=== PATIENT | male | born 1965 | race Caucasian/White ===

== ENCOUNTER → 2020-06-12 15:10 | Outpatient (CLI) | payer OTHER, SELFPAY ==
--- NOTE | 2020-06-12 15:17 | XR_ITS ---
PROCEDURE: XR LUMBAR SPINE MIN 4V CLINICAL INDICATION: LUMBAR DD DISEASE, CHRONIC BACK PAIN GREATER THAN 3 MONTHS COMPARISON: No exams were available for comparison FINDINGS: There is normal alignment. Small endplate osteophytes are present. There is very slight decrease in height anteriorly of L2 and L4 age indeterminate. Degenerative disc disease is present at L3-L4 L4-5 and L5-S1. Numerous small calcifications overlie the right upper quadrant on the right posterior oblique view and could be due to multiple tiny gallstones. Multiple splenic granulomas are present. IMPRESSION: Minimal wedging L2 and L4 age indeterminate with mild degenerative disc disease. No obvious retropulsed fragments Possible cholelithiasis Dictated by: Warren Silva MD 06/12/2020 15:32 Warren Silva MD in [place] 06/12/2020 15:32
== END ==
PROVIDERS: PCP Family Medicine; Visit Provider Family Medicine
DX: M51.36 Other intervertebral disc degeneration, lumbar region (principal); M48.062 Spinal stenosis, lumbar region with neurogenic claudication; M54.9 Dorsalgia, unspecified
CPT/HCPCS: 72110

== ENCOUNTER → 2021-07-20 07:47 | Outpatient (CLI) | payer OTHER, SELFPAY ==
--- NOTE | 2021-07-20 07:52 | US_ITS ---
FINAL REPORT CLINICAL HISTORY: ELEVATD LIVER ENZYMES; ruq pain with vomiting FINDINGS: Ultrasound images of the right upper quadrant were obtained. The liver parenchyma is normal in echogenicity. The gallbladder is contracted. There are multiple gallstones. The common duct is dilated up to 8 mm. Limited images of the right kidney are unremarkable. IMPRESSION: Multiple gallstones in a contracted gallbladder with dilatation of the common duct. Cannot exclude a distal choledocholithiasis. Reviewed, Interpreted and Dictated by Radames Palmer MD Transcribed by Erich Kenyon Authenticated by Radames Palmer MD on 07/20/2021 11:17:11 AM [facility]
== END ==
PROVIDERS: PCP Nurse Practitioner Family; Visit Provider Nurse Practitioner Family
DX: R74.8 Abnormal levels of other serum enzymes (principal)
CPT/HCPCS: 76705

== ENCOUNTER → 2022-09-13 08:05 | Outpatient (CLI) | payer OTHER, SELFPAY ==
--- NOTE | 2022-09-13 14:14 | XR_ITS ---
FINAL REPORT CLINICAL HISTORY: Lt hip pain radiating distally x 1 month since falling out of bed. FINDINGS: LEFT HIP: Two views of the left hip demonstrate no acute fracture or dislocation. The joint spaces appear normal. The visualized bony structures are well aligned. No soft tissue abnormality is seen. IMPRESSION: No acute bony abnormality. Reviewed, Interpreted and Dictated by Esteban Ortiz MD Transcribed by Danielle Swanson Authenticated and . [facility]
--- NOTE | 2022-09-13 14:15 | XR_ITS ---
FINAL REPORT TECHNIQUE: 5 views CLINICAL HISTORY: LT LBP x 1 month since falling out of bed. Pain radiates down Lt leg. FINDINGS: There is no fracture present. There is no malalignment. There are no significant degenerative changes. IMPRESSION: No acute process. Reviewed, Interpreted and Dictated by Esteban Ortiz MD Transcribed by Danielle Swanson Authenticated and [facility]
== END ==
PROVIDERS: PCP Internal Medicine; Visit Provider Internal Medicine
DX: M54.9 Dorsalgia, unspecified (principal); M54.50 Low back pain, unspecified; M25.552 Pain in left hip; M79.605 Pain in left leg
CPT/HCPCS: 72110; 73502

== ENCOUNTER 2022-10-23 09:49 | Emergency (ER) | payer BC, SELFPAY ==
[2022-10-23] VITALS (7 sets, daily range): BP systolic 110–155; BP diastolic 65–85; PULSE 88–108; RESP 16; TEMP 36.6–36.9; O2SAT 95–100; BMI 17.0
[2022-10-23 10:00] LABS: POC Glucose,Bedside 274 (70-110)
--- NOTE | 2022-10-23 10:03 | ECG_ITS ---
APPROVED REPORT Exam: Resting ECG HR:96 bpm ECG Measurements Heart Rate 96 AXES WY 139 P 78 QRSd 92 QRS 72 QT 358 T 79 QTc 412 Conclusion SINUS RHYTHM NORMAL ECG UNCONFIRMED REPORT Electronically signed by : Olaf Madden MD 10/23/2022 21:01:31
--- NOTE | 2022-10-23 10:22 | HMH.EDGENADL ---
Discharge Plan Disposition Patient Disposition: Home, Self-Care Referrals Follow up/Referrals: Adrianna Baron MD [Primary Care Provider] - See instructions Clinical Impressions Clinical Impression: Orthostatic dizziness, Acute dehydration, Pre-syncope, Hyperglycemia Discharge ED Provider: Justine Duong General Adult HPI General Chief complaint: Dizziness Stated complaint: High sugar Time Seen by Provider: 10/23/22 10:14 Mode of Arrival: Ambulatory Source of Information: Patient Limitations: No Limitations Description of Symptoms (Recalled from ER Triage Doc. by RN): Pt presents via POV after an episode of feeling lightheaded/dizzy while at work this morning. Hx of DMII, HTN, HLD. Denies further complaints. FS 174 on arrival. States he ate 1/2 bag of chips and drank (2) cups of coffee. History of Present Illness HPI narrative: Patient is a 57-year-old male presenting with lightheadedness and near syncope. He states that over the last several weeks he has been having orthostatic symptoms with lightheadedness with changes in position specifically with sitting to standing. 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 He did not lose consciousness. He had no chest pain or shortness of breath no abdominal pain or any other painful symptoms. He is now back to normal. Did state that his blood sugar recently was over 300. States that his blood sugar normally runs between 200-400 s this is not atypical for him. He knows that he has poor p.o. intake of fluids and has been told that this is the cause of the symptoms in the past by his primary care doctor. He denies other symptoms today. Related Data Allergies Allergy/AdvReac Type Severity Reaction Status Date / Time No Known Allergies Allergy Verified 10/23/22 10:14 [facility] Disclaimer: The information contained in this section may have been updated after the patient was seen, as this information can be updated by other users. Social History Smoking Status: Current every day smoker tobacco type: cigarettes packs per day: 1 alcohol intake: never current occupational status: employed Travel in the last 8 weeks: None ROS Obtained: Yes All systems reviewed & no additional complaints except as documented Physical Exam General General appearance: alert Respiratory Respiratory exam: Present normal lung sounds bilaterally; Absent wheezes Cardiovascular Cardiovascular exam: Present regular rate; Absent tachycardia Neurological Exam Neurological exam: Present alert and oriented X3 Medical Decision Making He Inquiry Pt receiving controlled substance: No Vital Signs: 10/23/22 10:03 10/23/22 09:53 10/23/22 10:00 Temperature 98.4 F Temperature Source Oral Pulse Rate 98 H 98 H Pulse Rate [Right] 108 H Respiratory Rate 16 Blood Pressure 110/70 115/65 Blood Pressure [Right Arm] 110/70 Blood Pressure Mean 85 82 Blood Pressure Mean [Right Arm] 83 02 Sat by Pulse Oximetry 97 100 100 Oxygen Delivery Method Room Air 10/23/22 10:30 Temperature Temperature Source Pulse Rate 97 H Pulse Rate [Right] Respiratory Rate Blood Pressure 120/76 Blood Pressure [Right Arm] Blood Pressure Mean 90 Blood Pressure Mean [Right Arm] 02 Sat by Pulse Oximetry 100 Oxygen Delivery Method Lab Data Lab results reviewed: Yes I reviewed the patient's lab results. Lab Results 10/23/22 09:53: POC Glucose 274 H 10/23/22 10:00: WBC 9.0, RBC 5.61, Hgb 14.9, Hct 44.5, MCV 79.3 L, MCH 26.6 L, MCHC 33.6, RDW 14.1, Plt Count 400, MPV 7.1 L, Neut % (Auto) 66.1, Lymph % (Auto) 26.6, Clayton % (Auto) 5.4, Eos % (Auto) 1.1, Baso % (Auto) 0.8, Neut # (Auto) 5.9, Lymph # (Auto) 2.4, Clayton # (Auto) 0.5, Eos # (Auto) 0.1, Baso # (Auto) 0.1, Sodium 137, Potassium 4.4, Chloride 95 L, Carbon Dioxide 29, Anion Gap 17.4 H, BUN 13, Creat
[2022-10-23 10:31] LABS: Basophils # 0.1 K/mm3 (0-0.2); Basophils % 0.8 % (0.1-2.0); Eosinophils # 0.1 K/mm3 (0.0-0.4); Eosinophils % 1.1 % (0.1-12.0); Hematocrit 44.5 % (42.0-52.0); Hemoglobin 14.9 g/dL (14.1-18.0); Lymphocytes # 2.4 K/mm3 (0.7-4.5); Lymphocytes % 26.6 % (10-50); Mean Corpuscular HGB Conc 33.6 g/dL (31.8-35.4); Mean Corpuscular Hemoglobin 26.6 pg (27.0-31.2); Mean Corpuscular Volume 79.3 fl (80-94); Mean Platelet Volume 7.1 fl (7.4-10.4); Monocytes # 0.5 K/mm3 (0.1-1.0); Monocytes % 5.4 % (1.7-9.3); Neutrophils # 5.9 K/mm3 (1.8-7.8); Neutrophils % 66.1 % (37.0-80.0); Platelet Count 400 K/mm3 (142-424); Red Blood Count 5.61 M/mm3 (4.60-6.20); Red Cell Distribution Width 14.1 % (11.5-17.5)
[2022-10-23 10:33] LABS: Anion Gap 17.4 mEq/L (5-15); Blood Urea Nitrogen 13 mg/dl (9-20); Carbon Dioxide 29 mmol/L (22.0-30.0); Chloride 95 mmol/L (98-107); Creatinine Clearance Estimated 80 mL/min (50-200); Estimated Glomerular Filt Rate 100 ml/min (>60); GFR (African American) 121 ML/MIN (>60); Glucose 301 mg/dl (74-100); Potassium 4.4 mmoL/L (3.5-5.1); Sodium 137 mmol/L (136-145)
--- NOTE | 2022-10-23 10:37 | PC.NURSE ---
Pt updated on plan of care. Family at the bedside.
--- NOTE | 2022-10-23 10:40 | PC.NURSE ---
Rounded on patient; Spouse at BS. no other needs at this time. Call burnett within reach
[2022-10-23 10:45] LABS: Troponin I < 0.01 ng/ml (0.00-0.034)
--- NOTE | 2022-10-23 11:17 | PC.NURSE ---
Additional warm blankets provided.
--- NOTE | 2022-10-23 11:25 | PC.NURSE ---
Water provided; eddie by . Pt ambulated to restroom.
--- NOTE | 2022-10-23 11:26 | PC.NURSE ---
MD to bedside.
== END 2022-10-23 11:40 | disposition home or self-care (01) ==
PROVIDERS: Emergency Provider Student in an Organized Health Care Education/Training Program; PCP Family Medicine
DX: E11.65 Type 2 diabetes mellitus with hyperglycemia (principal); E86.0 Dehydration; R55 Syncope and collapse; I10 Essential (primary) hypertension; E78.5 Hyperlipidemia, unspecified; F17.210 Nicotine dependence, cigarettes, uncomplicated
CPT/HCPCS: 80048; 82962; 84484; 85025; 93005; 96360; 99285

== ENCOUNTER 2023-03-20 15:56 | Emergency (ER) | payer OTHER, BC, SELFPAY ==
[2023-03-20 15:58] VITALS: BP 150/85; PULSE 107; RESP 19; TEMP 36.9; O2SAT 96; BMI 17.8
--- NOTE | 2023-03-20 16:17 | HMH.EDGENADL ---
Discharge Plan Disposition Patient Disposition: Home, Self-Care Referrals Follow up/Referrals: Adrianna Baron MD [Primary Care Provider] - See instructions Jose Caro DPM [Physician] - See instructions Activity Restrictions/Add. Instructions Additional Instructions/Restrictions: Call your family doctor to establish care for this visit to the emergency department and schedule follow-up within 48 hours to ensure improvement. If you have any worsening of your condition or any other concerning signs or symptoms, return to the emergency department or your primary care doctor for further evaluation. Take Tylenol 1000 mg every 6 hours (4 times daily) and ibuprofen 400 mg every 6 hours (4 times daily) as needed with food and water to prevent GI upset and kidney damage. Podiatry follow-up has been listed here. Call them for follow-up short and long-term. Clinical Impressions Clinical Impression: Blister of left great toe Qualifiers: Encounter type: initial encounter Qualified Code(s): S90.422A - Blister (nonthermal), left great toe, initial encounter Instructions Patient Instructions: DI for Skin Abscess Discharge ED Provider: Deion Mariscal General Adult HPI General Chief complaint: Skin/Abscess/Foreign Body Stated complaint: WC 12-12 Left big toe damaged Time Seen by Provider: 03/20/23 16:00 Mode of Arrival: Ambulatory Source of Information: Patient Limitations: No Limitations Description of Symptoms (Recalled from ER Triage Doc. by RN): pt presents to ED with c/o blister on left big toe. 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 pt reports that his steel toe boot caught his big toe within his boot and caused a blister on the big toe of left foot. pt is diabetic. History of Present Illness HPI narrative: 57-year-old male history of hypertension, hyperlipidemia, diabetes, currently smoking presenting with left great toe injury. Patient states that a couple days prior to arrival, he was at work when he got his foot caught under a machine. He was wearing steel toed boots. It bent his foot forward and hyperflexed his digits, he had pain in his left foot, but has been able to bear weight. He called his family doctor, family doctor recommended he come to the emergency department for antibiotics and concern for infection because of diabetes. Patient states that his diabetes is well-controlled and he has had no fevers or chills. No drainage from the area. Related Data Allergies Allergy/AdvReac Type Severity Reaction Status Date / Time No Known Allergies Allergy Verified 10/23/22 10:14 [facility] Disclaimer: The information contained in this section may have been updated after the patient was seen, as this information can be updated by other users. Social History Smoking Status: Current every day smoker tobacco type: cigarettes packs per day: 1 alcohol intake: never current occupational status: employed Travel in the last 8 weeks: None ROS Obtained: Yes All systems reviewed & no additional complaints except as documented Physical Exam General General appearance: alert and in no apparent distress Head Head exam: atraumatic and normocephalic Eye Eye exam: Present normal appearance, PERRL and EOMI ENT ENT exam: Present mucous membranes moist Neck Neck exam: Present normal inspection, full ROM and trachea midline Respiratory Respiratory exam: Absent respiratory distress, wheezes, stridor, accessory muscle use or prolonged expiratory phase Cardiovascular Cardiovascular exam: Present normal rhythm Abdominal Exam Abdominal exam: Present soft; Absent distention, tenderness, guarding, rebound, rigidity or normal bowel sounds Extremities Exam Extremities exam: Present other (L great toe blood blister, no drainage. ROM intact, but limited secondary to swelling); Absent edema Neurological Exam Neurological exam: Present alert, oriented X3, CN II-XII intact and normal gait; A
--- NOTE | 2023-03-20 16:18 | XR_ITS ---
PROCEDURE INFORMATION: Exam: XR Left Foot Exam date and time: 03/20/2023 4:23 PM Age: 57 years old Clinical indication: Pain; Foot and toes; Left; Additional info: Left great toe injury and decreased rom TECHNIQUE: Imaging protocol: Radiologic exam of the left foot. Views: 3 or more views. COMPARISON: No relevant prior studies available. FINDINGS: Bones/joints: No fractures, dislocations, or focal bone lesions. The interphalangeal joint of the great toe may be widened. No periarticular erosions. Soft tissues: No masses, soft tissue gas, or radiopaque foreign bodies. IMPRESSION: 1. Questionable widening of the IP joint of the left great toe may indicate joint effusion or ligament injury. No fracture or dislocation. MRI would be useful if clinically warranted. 2. No other acute findings in the left foot.
[2023-03-20 16:30] VITALS: BP 149/88; PULSE 102; O2SAT 99
[2023-03-20 17:00] VITALS: BP 163/135; PULSE 102; O2SAT 98
[2023-03-20 17:58] VITALS: BP 129/86; PULSE 101; RESP 18; TEMP 36.6; O2SAT 98
== END 2023-03-20 17:59 | disposition home or self-care (01) ==
PROVIDERS: Emergency Provider Emergency Medicine; PCP Family Medicine
DX: S90.422A Blister (nonthermal), left great toe, initial encounter (principal); E11.9 Type 2 diabetes mellitus without complications; I10 Essential (primary) hypertension; E78.5 Hyperlipidemia, unspecified; F17.210 Nicotine dependence, cigarettes, uncomplicated; W23.1XXA Caught, crushed, jammed, or pinched between stationary objects, initial encounter
CPT/HCPCS: 73630; 99283

== ENCOUNTER → 2023-03-24 12:45 | Outpatient (CLI) | payer OTHER, SELFPAY ==
[2023-03-24 13:36] LABS: Basophils # 0.1 K/mm3 (0-0.2); Basophils % 0.5 % (0.1-2.0); Eosinophils # 0.1 K/mm3 (0.0-0.4); Eosinophils % 0.6 % (0.1-12.0); Hematocrit 39.2 % (42.0-52.0); Hemoglobin 13.5 g/dL (14.1-18.0); Lymphocytes # 3.4 K/mm3 (0.7-4.5); Lymphocytes % 28.8 % (10-50); Mean Corpuscular HGB Conc 34.6 g/dL (31.8-35.4); Mean Corpuscular Hemoglobin 27.2 pg (27.0-31.2); Mean Corpuscular Volume 78.8 fl (80-94); Mean Platelet Volume 6.4 fl (7.4-10.4); Monocytes # 0.4 K/mm3 (0.1-1.0); Monocytes % 3.3 % (1.7-9.3); Neutrophils # 7.8 K/mm3 (1.8-7.8); Neutrophils % 66.8 % (37.0-80.0); Platelet Count 500 K/mm3 (142-424); Red Blood Count 4.98 M/mm3 (4.60-6.20); Red Cell Distribution Width 13.6 % (11.5-17.5); White Blood Count 11.7 K/mm3 (4.8-10.8)
[2023-03-24 13:46] LABS: Albumin Level 4.3 g/dl (3.5-5.0); Albumin/Globulin Ratio 1.7 (1.1-1.8); Blood Urea Nitrogen 10 mg/dl (9-20); Calcium 9.1 mg/dl (8.4-10.2); Estimated Glomerular Filt Rate 139 ml/min (>60); GFR (African American) 168 ML/MIN (>60); Globulin 2.6 g/dL (1.3-3.2); Glucose 355 mg/dl (74-100); Potassium 3.9 mmoL/L (3.5-5.1); Total Protein,Serum 6.9 g/dl (6.3-8.2)
[2023-03-24 13:48] LABS: Alanine Aminotransferase 20 U/L (12-78); Alkaline Phosphatase 94 U/L (38-126); Anion Gap 14.9 mEq/L (5-15); Aspartate Amino Transferase 25 U/L (17-59); Bilirubin,Total 0.6 mg/dl (0.2-1.3); Carbon Dioxide 26 mmol/L (22.0-30.0); Chloride 97 mmol/L (98-107); Sodium 134 mmol/L (136-145)
[2023-03-24 13:51] LABS: C-Reactive Protein 3.9 mg/L (0-4)
[2023-03-24 14:09] LABS: Erythrocyte Sedimentation Rate 12 mm/hr (0-20)
[2023-03-24 14:59] LABS: Hemoglobin A1C 11.3 % (4.0-6.0)
[2023-04-02 00:02] LABS: 1,25 Dihydroxy Vitamin D 42 pg/mL (.); 1,25-Dihydroxy, Vitamin D-2 21 pg/mL (.); 1,25-Dihydroxy, Vitamin D-3 21 pg/mL (.)
== END ==
PROVIDERS: PCP Family Medicine; Visit Provider Podiatrist
DX: E11.9 Type 2 diabetes mellitus without complications (principal); S90.422A Blister (nonthermal), left great toe, initial encounter; Z79.4 Long term (current) use of insulin
CPT/HCPCS: 36415; 80053; 82652; 83036; 85025; 85651; 86140

== ENCOUNTER 2025-01-11 08:39 | Day surgery (SDC) | payer BC, SELFPAY ==
--- NOTE | 2025-01-11 09:02 | EXP.GEN.HP ---
HPI HPI HPI: This is a 59-year-old gentleman who presents for colonoscopy. He reports a recent positive blood study . Presumably, he has had a recent positive Guardant Shield blood test. No melena. No bright red blood per rectum. No unexplained weight loss. [facility] Disclaimer: The information contained in this section may have been updated after the patient was seen, as this information can be updated by other users. Social History Smoking Status: Current every day smoker tobacco type: cigarettes packs per day: 1 alcohol intake: never current occupational status: employed Travel in the last 8 weeks?: None Have you lived/traveled outside [place] in past 30 days?: No Contact w/someone who lives/traveled outside US past 30 days?: No Exposure to someone with infectious disease in past 14 days?: No Do you have a fever (greater than 100.4 F or 38 C)?: No Have you tested positive for COVID-19?: No Exposed to someone with COVID-19 in past 14 days?: No Do you have a sore throat?: No Do you have a cough?: No Do you have any weakness?: No Do you have any diarrhea?: No Are you experiencing any unusual bleeding?: No Do you have any muscle aches/pain?: No Do you have any abdominal pain?: No Are you experiencing loss of taste or smell?: No Other Medical History Have you received the Flu Vaccine for this season: No Have you received the Pneumonia Vaccine: No Review of Systems Review of Systems Review of systems:: pertinent systems reviewed and negative unless documented below Meds Home Medications and Allergies Home Medications ?Medication ?Instructions ?Recorded ?Confirmed ?Type amlodipine 5 mg tablet mg PO 03/24/23 06/16/23 History doxycycline hyclate 100 mg tablet 100 mg PO BID 10 days #20 tabs 03/24/23 06/16/23 Rx ergocalciferol (vitamin D2) 1,250 PO 03/24/23 06/16/23 History mcg (50,000 unit) capsule (Vitamin D2) eszopiclone 2 mg tablet mg PO 03/24/23 06/16/23 History gentamicin 0.1 % topical cream 1 applic topical DAILY #30 grams 03/24/23 06/16/23 Rx insulin lispro protamine-lispro SQ 03/24/23 06/16/23 History 100 unit/mL (75-25) subcutaneous pen metformin 1,000 mg tablet mg PO 03/24/23 06/16/23 History niacin 500 mg tablet 500 mg PO DAILY 03/24/23 06/16/23 History omeprazole 40 mg capsule,delayed mg PO 03/24/23 06/16/23 History release tizanidine 4 mg tablet mg PO 03/24/23 06/16/23 History tramadol 50 mg tablet 50 mg PO TID PRN pain 7 days #21 03/24/23 06/16/23 Rx tabs sod picosulf 10 mg-magnes 3.5 175 ml PO DAILY 2 doses #350 mL 01/04/25 Rx gram-citric 12 gram/175 mL oral solution (Clenpiq) New Prescriptions to Start Prescriptions: Allergies Allergy/AdvReac Type Severity Reaction Status Date / Time No Known Allergies Allergy Verified 06/16/23 09:21 Exam Constitutional Constitutional: no acute distress *Routine HEENT Exam Head: Present normocephalic Eye: Present EOMI ENT: Present mucous membranes moist *Routine Neck Exam Neck: Present full ROM *Routine Respiratory Exam Respiratory: Absent respiratory distress *Routine Cardiovascular Exam Cardiovascular: Absent tachycardia *Routine Abdominal Exam Abdominal: Present soft *Routine Rectal Exam Rectal:: deferred *Routine Genitalia Exam Genitalia:: deferred *Routine Extremities Exam Extremities: Present full ROM *Routine Skin Exam Skin: Absent erythema *Routine Neurological Exam Neurological: Present alert Assessment and Plan *Assessment and plan (1) Abnormal blood test: Problem Comment: Presumably, the patient has had a recent Guardant Shield blood test Status: Acute Category: Medical Plan: Colonoscopy today I have discussed the risks and benefits including, but not limited to: Bleeding Infection Damage to surrounding tissue Inherent risks of sedation The patient agrees to proceed.
--- NOTE | 2025-01-11 09:04 | P.PCN_ITS ---
Procedure: Date: 01/11/25 Patient Date of :: 1965 Procedure Performed:: Colonoscopy with polypectomy Indications:: Screening (presumably, recent positive Guardant Shield blood test) Performing Provider:: Mohan Chavis MD Referring Provider:: . Sedation:: Monitored anesthesia care Procedure:: After informed consent was obtained the patient was taken to the endoscopy suite. Sedation ensued after the patient was transferred to the left lateral decubitus position. Pulse, blood pressure, and oxygen saturation were monitored throughout the procedure. Digital rectal exam revealed no significant abnorm ality. The colonoscope was placed in position. The entire colon was evaluated. The colonoscope was carefully removed and the patient was transferred to recovery in stable condition. Please see findings and specimens below for detail. Findings:: Bowel preparation exceedingly poor Colonoscopy not aborted secondary to recent positive Guardant Shield study Severe spasticity/lack of relaxation Complex lobulated hepatic flexure polyp Specimens:: Complex lobulated hepatic flexure polyp (hot snare) Recommendations:: Repeat colonoscopy in the very near future with extended/alternate bowel preparation. Consider gastroenterology consultation for possible chronic constipation. If gastroenterology consultation is completed is repeat colonoscopy will be deferred to their service. Complications:: Poor bowel preparation limited visualization Estimated blood obtained (mL): 1 Colonoscopy Component Colonoscopy Component Was a colonoscopy performed during today's procedure?: Yes Recommended follow up colonoscopy of at least 10 years?: No If no, follow up colonoscopy recommended in ___ years?: (See above) Reason for not recommending >/= 10 yr follow-up interval?: (See above)
[2025-01-11 09:10] VITALS: BP 167/91; PULSE 106; RESP 20; TEMP 36.2; O2SAT 99; BMI 19.9
[2025-01-11 09:23] LABS: POC Glucose,Bedside 307 gm/dL (70-110)
[2025-01-11] MEDS: LACTATED RINGERS 1000ML 1,000 ML 50 ML IV (09:56)
--- NOTE | 2025-01-11 09:58 | EXP.ANES.CKL ---
[facility] Disclaimer: The information contained in this section may have been updated after the patient was seen, as this information can be updated by other users. Medical History Diabetes mellitus, type 2 Hypertension Hyperlipidemia Allergies Surgical History Hx of surgical amputation of finger Family History Grandfather History of liver cancer Social History Smoking Status: Current every day smoker tobacco type: cigarettes packs per day: 1 alcohol intake: never substance use type: unknown current occupational status: employed Travel in the last 8 weeks?: None [facility] Anesthesia Checklist Patient Identification Patient Identification: Arm Band and Verbal (Name & ) Structural Data Admitted From: Home Planned Operative Procedure/s: colonscopy Consent for Planned Operative Procedure(s) Verified: Yes Verified Documents: Surgical Consent and History and Physical NPO Status Verified Time NPO: 00:00 Additional verifications Anesthesia Reactions: Yes Previous Colonoscopy: No Airway Assessment Mallampati Score:: Class II Dentition: Edentulous Neurological Assessment Level of Consciousness: Awake, Alert and Appropriate Hx Seizures: No Numbness or tingling in extremities: No Anesthesia Plan Anesthesia Risk discussed: Yes Anesthesia Plan: Verified ASA Class: III Anesthesia Type: MAC
[2025-01-11 11:08] VITALS: BP 98/57; PULSE 68; RESP 14; TEMP 36.6; O2SAT 100
[2025-01-11 11:18] VITALS: BP 114/65; PULSE 77; RESP 17; TEMP 36.6; O2SAT 97
[2025-01-11 11:28] VITALS: BP 119/69; PULSE 77; RESP 17; TEMP 36.6; O2SAT 99
[2025-01-11 11:38] VITALS: BP 138/55; PULSE 78; RESP 18; TEMP 36.6; O2SAT 99
== END 2025-01-11 11:45 | disposition home or self-care (01) ==
PROVIDERS: PCP Family Medicine; Visit Provider Surgery
PROC: 0DJD8ZZ Inspection of Lower Intestinal Tract, Via Natural or Artificial Opening Endoscopic (ICD-10-PCS; CPT 45385; principal; 2025-01-11 09:30)
DX: D12.3 Benign neoplasm of transverse colon (principal); F17.210 Nicotine dependence, cigarettes, uncomplicated
CPT/HCPCS: 45385; 82962; J2003; J2704; J7120

== ENCOUNTER 2025-02-15 08:57 | Day surgery (SDC) | payer BC, SELFPAY ==
--- NOTE | 2025-02-15 09:10 | EXP.GEN.HP ---
HPI HPI HPI: This is a 59-year-old gentleman who returns for short-term repeat colonoscopy. Forwarded from office visit note dated January 19, 2025: The patient returns status post colonoscopy. Findings, specimens, and recommendations have been reviewed and are forwarded from procedure note below. Pathology reviewed and added to forwarded note below. No fevers. No abdominal pain. Findings:: Bowel preparation exceedingly poor Colonoscopy not aborted secondary to recent positive Guardant Shield study Severe spasticity/lack of relaxation Complex lobulated hepatic flexure polyp Specimens:: Complex lobulated hepatic flexure polyp (hot snare) [PATH: tubular adenoma] Recommendations:: Repeat colonoscopy in the very near future with extended/alternate bowel preparation. Consider gastroenterology consultation for possible chronic constipation. If gastroenterology consultation is completed is repeat colonoscopy will be deferred to their service. A/P: (1) Abnormal blood test: Status: Acute Problem Comment: Presumably, the patient has had a recent Guardant Shield blood test Plan: Recent colonoscopy limited by poor bowel preparation and severe spasticity/lack of relaxation. Short-term repeat colonoscopy with extended/alternate bowel preparation warranted. The patient states that he is willing to undergo repeat colonoscopy. He wishes to hold off for now with regard to possible gastroenterology consultation. He is being scheduled for short-term repeat colonoscopy. (2) Tubular adenoma of colon: Code(s): D12.6 - Benign neoplasm of colon, unspecified Status: Acute Plan Details Active Problems Reviewed?: Yes Follow Up: After repeat colonoscopy PFSH PFS Disclaimer: The information contained in this section may have been updated after the patient was seen, as this information can be updated by other users. Medical History (Updated 01/19/25 @ 14:04 by Mohan Chavis MD) Diabetes mellitus, type 2 Hypertension Hyperlipidemia Allergies Surgical History (Updated 01/19/25 @ 13:58 by CYNDI Pitt) History of colonoscopy Hx of surgical amputation of finger Family History Grandfather History of liver cancer Social History Smoking Status: Current every day smoker tobacco type: cigarettes packs per day: 1 alcohol intake: never substance use type: unknown current occupational status: employed Travel in the last 8 weeks?: None Have you lived/traveled outside [place] in past 30 days?: No Contact w/someone who lives/traveled outside [place] past 30 days?: No Exposure to someone with infectious disease in past 14 days?: No Do you have a fever (greater than 100.4 F or 38 C)?: No Have you tested positive for COVID-19?: No Exposed to someone with COVID-19 in past 14 days?: No Do you have a sore throat?: No Do you have a cough?: No Do you have any weakness?: No Do you have any diarrhea?: No Are you experiencing any unusual bleeding?: No Do you have any muscle aches/pain?: No Do you have any abdominal pain?: No Are you experiencing loss of taste or smell?: No Other Medical History Have you received the Flu Vaccine for this season: No Have you received the Pneumonia Vaccine: No Review of Systems Review of Systems Review of systems:: pertinent systems reviewed and negative unless documented below Meds Home Medications and Allergies Home Medications ?Medication ?Instructions ?Recorded ?Confirmed ?Type amlodipine 5 mg tablet 5 mg PO DAILY 03/24/23 02/15/25 History ergocalciferol (vitamin D2) 1,250 See Rx Instructions .Route .COMPLEX 03/24/23 02/15/25 History mcg (50,000 unit) capsule (Vitamin D2) eszopiclone 2 mg tablet 2 mg PO NEEDED PRN Sleep 03/24/23 02/15/25 History gentamicin 0.1 % topical cream 1 applic topical DAILY #30 grams 03/24/23 02/15/25 Rx insulin lispro protamine-lispro See Rx Instructions .Route .COMPLEX 03/24/23 02/15/25 History 100 unit/mL (75-25) subcutaneous pen niacin 500 mg tablet 500 mg PO DAILY 03/24/23 02/15/25 History tizanidine 4 mg tablet 4 mg PO DAILY 03/24/23 02/15/25 History tramadol 50 mg tablet 50 mg PO TID PRN pain 7 days #21 03/24/23 02/15/25 Rx tabs gabapentin 400 mg capsule 400 mg PO BID 01/11/25 02/15/25 History pantoprazole 40 mg tablet,delayed 40 mg PO DAILY 01/19/25 02/15/25 History release potassium chloride 20 mEq 20 meq PO DAILY 01/19/25 02/15/25 History tablet,extended release(part/cryst) sodium,potassium,mag sulfates 17.5 See Rx Instructions PO .COMPLEX 01/19/25 01/19/25 Rx gram-3.13 gram-1.6 gram oral soln #354 mL (Suprep Bowel Prep Kit) New Prescriptions to Start Prescriptions: Allergies Allergy/AdvReac Type Severity Reaction Status Date / Time No Known Allergies Allergy Verified 01/19/25 13:56 Exam Constitutional Constitutional: no acute distress *Routine HEENT Exam Head: Present normocephalic Eye: Present EOMI ENT: Present mucous membranes moist *Routine Neck Exam Neck: Present full ROM *Routine Respiratory Exam Respiratory: Absent respiratory distress *Routine Cardiovascular Exam Cardiovascular: Absent tachycardia *Routine Abdominal Exam Abdominal: Present soft *Routine Rectal Exam Rectal:: deferred *Routine Genitalia Exam Genitalia:: deferred *Routine Extremities Exam Extremities: Present full ROM *Routine Skin Exam Skin: Absent erythema *Routine Neurological Exam Neurological: Present alert Assessment and Plan *Assessment and plan (1) Abnormal blood test: Problem Comment: Presumably, the patient has had a recent Guardant Shield blood test Status: Acute Category: Medical (2) Tubular adenoma of colon: Status: Acute Category: Medical Code(s): D12.6 - Benign neoplasm of colon, unspecified Plan Short-term repeat colonoscopy today I have discussed the risks and benefits including, but not limited to: Bleeding Infection Damage to surrounding tissue Inherent risks of sedation The patient agrees to proceed.
[2025-02-15 09:12] VITALS: BP 127/85; PULSE 96; RESP 16; TEMP 36.2; O2SAT 100; BMI 20.2
--- NOTE | 2025-02-15 09:13 | HMH.SCOPE ---
Procedure: Date: 02/15/25 Patient Date of :: 1965 Procedure Performed:: Colonoscopy with polypectomy by means other than snare Indications:: Recent guardant Shield blood test positive Recent colonoscopy with limited visualization Tubular adenoma excised during recent colonoscopy Performing Provider:: Mohan Chavis MD Referring Provider:: . Sedation:: Monitored anesthesia care Procedure:: After informed consent was obtained the patient was taken to the endoscopy suite. Sedation ensued after the patient was transferred to the left lateral decubitus position. Pulse, blood pressure, and oxygen saturation were monitored throughout the procedure. Digital rectal exam revealed no significant abnormality. The colonoscope was placed in position. The entire colon was evaluated. The colonoscope was carefully removed and the patient was transferred to recovery in stable condition. Please see findings and specimens below for detail. Findings:: Bowel preparation moderate to poor Profound/persistent spasticity/lack of relaxation Polyps (see specimens) Specimens:: Small right colon polyp (cold biopsy forceps) Small polyp at 35 cm (cold biopsy forceps) Recommendations:: Consider barium enema secondary to persistent spasticity/lack of relaxation. Repeat colonoscopy in 2-3 years (pending results of barium enema) Complications:: No immediate Estimated blood obtained (mL): 1 Colonoscopy Component Colonoscopy Component Was a colonoscopy performed during today's procedure?: Yes Recommended follow up colonoscopy of at least 10 years?: No If no, follow up colonoscopy recommended in ___ years?: (See above) Reason for not recommending >/= 10 yr follow-up interval?: (See above)
[2025-02-15] MEDS: LACTATED RINGERS 1000ML 1,000 ML 50 ML IV (09:19)
[2025-02-15 09:30] LABS: POC Glucose,Bedside 205 gm/dL (70-110)
--- NOTE | 2025-02-15 09:32 | P.PNANES_ITS ---
[facility] Disclaimer: The information contained in this section may have been updated after the patient was seen, as this information can be updated by other users. Medical History (Updated 01/19/25 @ 14:04 by Mohan Chavis MD) Diabetes mellitus, type 2 Hypertension Hyperlipidemia Allergies Surgical History (Updated 01/19/25 @ 13:58 by CYNDI Pitt) History of colonoscopy Hx of surgical amputation of finger Family History Grandfather History of liver cancer Social History Smoking Status: Current every day smoker tobacco type: cigarettes packs per day: 1 alcohol intake: never substance use type: unknown current occupational status: employed Travel in the last 8 weeks?: None Have you lived/traveled outside [place] in past 30 days?: No Contact w/someone who lives/traveled outside [place] past 30 days?: No Exposure to someone with infectious disease in past 14 days?: No Do you have a fever (greater than 100.4 F or 38 C)?: No Have you tested positive for COVID-19?: No Exposed to someone with COVID-19 in past 14 days?: No Do you have a sore throat?: No Do you have a cough?: No Do you have any weakness?: No Do you have any diarrhea?: No Are you experiencing any unusual bleeding?: No Do you have any muscle aches/pain?: No Do you have any abdominal pain?: No Are you experiencing loss of taste or smell?: No [facility] Anesthesia Checklist Patient Identification Patient Identification: Arm Band Structural Data Admitted From: Home Planned Operative Procedure/s: Colonoscopy Consent for Planned Operative Procedure(s) Verified: Yes Verified Documents: Surgical Consent and History and Physical NPO Status Verified Time NPO: 07:30 (coffee) Additional verifications Anesthesia Reactions: Yes Airway Assessment Mallampati Score:: Class II C-Spine Mobility Assessed: Yes TMJ Mobility Assessed: Yes Dentition: Edentulous Neurological Assessment Level of Consciousness: Awake, Alert and Appropriate Anesthesia Plan Anesthesia Risk discussed: Yes Anesthesia Plan: Verified ASA Class: II Anesthesia Type: MAC
[2025-02-15 10:06] VITALS: BP 92/60; PULSE 73; RESP 16; TEMP 36.3; O2SAT 98
[2025-02-15 10:21] VITALS: BP 102/68; PULSE 88; RESP 16; TEMP 36.3; O2SAT 99
[2025-02-15 10:36] VITALS: BP 128/78; PULSE 84; RESP 16; TEMP 36.3; O2SAT 99
== END 2025-02-15 10:49 | disposition home or self-care (01) ==
PROVIDERS: PCP Family Medicine; Visit Provider Surgery
PROC: 0DJD8ZZ Inspection of Lower Intestinal Tract, Via Natural or Artificial Opening Endoscopic (ICD-10-PCS; CPT 45380; principal; 2025-02-15 10:45)
DX: D12.2 Benign neoplasm of ascending colon (principal); F17.210 Nicotine dependence, cigarettes, uncomplicated; E78.5 Hyperlipidemia, unspecified; I10 Essential (primary) hypertension; E11.9 Type 2 diabetes mellitus without complications; Z79.4 Long term (current) use of insulin
CPT/HCPCS: 45380; 82962; J2003; J2704; J7120